=== PATIENT | female | born 1980 | race Caucasian/White ===

== ENCOUNTER 2017-09-16 17:28 | Inpatient (IN) | payer OTHER ==
[~2017-09-16] VITALS: Ht 152.4 cm; Wt 69.2 kg
[~2017-09-16 17:28] MED LIST: ACEBUTCAFT; ALBU90OI INH; AZIT250 PO; AZIT500 PO; BELPHEELB PO; BIRTH CONTROL; Bactrim Ds Tab1 EACH PO; CEFU500 PO; CEPH500; CEPH500 PO; CETYLOZ; CLIN150 PO; CLIN15SU PO; CLIN300 PO; CLINDAMYCIN; CODACE30; CODACE30 PO; CODGUAEL PO; COPPER2 MG PO; CRUTCH3 USE; CRUTCH4 USE; CYCL10 PO; DIAZ5; DIAZ5 PO; DOXY100 PO; DULO30 PO; DULO60 PO; ERGO50000 PO; ERYT.5TO OS; ERYT333ERA; ERYT333ERA PO; ERYT500 PO; ESCI10; FAMO20 PO; FAMO40 PO; FLUO20 PO; GUAI100SY PO; HYDACE10B PO; HYDACE5 PO; HYDACE7.5 PO; HYDMOR2 PO; IBUHYD PO; IBUP600 PO; IBUP800 PO; IRON150C PO; KETO10 PO; LEVAQUIN; LEVFLO500 PO; LEXAPRO; LIDO700A20 TOP; LITH300CA; LOVA20; MAGCIT300 PO; MAGGLU250 PO; METR500 PO; MILK THISTLE; MILK THISTLE PO; MULVITMINE; MULVITMINE PO; NAPR375 PO; NAPR500 PO; NAPR500ERA PO; NAPR550; NAPR550 PO; NAPROSYN PRN; NEOPOLHCSU LEFTEAR; NITR100CA PO; NUVARING; ONDA4 PO; OXYACE5T PO; OXYC10TA19 PO; PARO20; PARO30; POLY17UD PO; POTA8 PO; PROACE100 PO; PROM25; PROM25 PO; PROM25S PR; Pepcid20 MG PO; RISP.25; ROXICODONE5 MG PO; RXCODGUASY PO; RXHYDACE PO; RXHYDMOR2 PO; RXNAPNA550 PO; RXOXYACE PO; RXPROACE PO; SILVER; SULTRIDS PO; TETR250; TRAM50 PO; TRAZ50; Vitamin B Comple1 EA PO; [UNRECOGNIZED DRUG - OTHER]; [UNRECOGNIZED DRUG - OTHER]; [UNRECOGNIZED DRUG - REMARK]
[2017-09-16 20:09] LABS: Source, Urine Clean Catch
[2017-09-16 20:14] LABS: BASOPHILS ABSOLUTE AUTO 0.02 K/mm3 (0.00-0.23); BASOPHILS PERCENT AUTO 0 % (0-2); EOSINOPHILS ABSOLUTE AUTO 0.14 K/mm3 (0.00-0.68); EOSINOPHILS PERCENT AUTO 2 % (0-6); Hematocrit 31.9 % (33.0-51.0); Hemoglobin 10.3 g/dL (11.5-16.0); IMMATURE GRAN ABSOLUTE AUTO 0.11 K/mm3 (0.00-0.10); IMMATURE GRAN PERCENT AUTO 1 % (0-1); LYMPHOCYTES PERCENT AUTO 22 % (21-46); MONOCYTES ABSOLUTE AUTO 0.67 K/mm3 (0.16-1.47); MONOCYTES PERCENT AUTO 8 % (4-13); Mean Corpuscular HGB 27.2 pg (26.0-34.0); Mean Corpuscular HGB Conc 32.3 g/dL (31.5-36.5); Mean Corpuscular Volume 84 fL (80-100); Mean Platelet Volume 9.5 fL (9.1-12.4); NEUTROPHILS PERCENT AUTO 67 % (41-73); Platelet Count 246 K/mm3 (150-400); RDW Coefficient Variation 12.5 % (11.7-14.2); RDW Standard Deviation 37.5 fL (35.1-46.3); Red Blood Cell Count 3.79 M/mm3 (3.80-5.20); White Blood Cell Count 8.34 K/mm3 (4.00-11.30)
[2017-09-16 20:17] LABS: Appearance, Urine Clear (Clear); Bilirubin, Urine Neg (Neg); Blood, Urine 3+ (Neg); Color, Urine Yellow (P-Yellow); Glucose Qualitative, Urine Neg (Neg); Ketones, Urine Neg (Neg); Leukocyte Esterase, Urine 1+ (Neg); Nitrite, Urine Neg (Neg); Protein, Urine Neg (Neg); Urobilinogen, Urine NORM (Normal)
[2017-09-16 20:30] LABS: White Blood Cells, Urine 0-2 /hpf (0-5)
[2017-09-16 20:30] LABS: Alanine Aminotransfer (ALT/SGP 15 U/L (12-78); Albumin, Blood 2.3 g/dL (3.4-5.0); Albumin/Globulin Ratio 0.5 (0.8-1.8); Alk Phos 166 U/L (50-136); Anion Gap 8 mmol/L (6-16); Aspartate Aminotrans (AST/SGOT 18 U/L (12-37); Bilirubin, Total 0.1 mg/dL (0.1-1.0); Blood Urea Nitrogen 15 mg/dL (8-24); Bun/Creatinine Ratio 26.7 (12.0-20.0); CO2, Blood 27 mmol/L (21-32); Calcium, Blood 8.9 mg/dL (8.5-10.1); Chloride, Blood 104 mmol/L (98-108); Creatinine, Blood 0.56 mg/dL (0.40-1.00); Globulin, Blood 4.3 g/dL (2.2-4.0); Glomerular Filtration Rate >60 (60-); Glucose, Blood 83 mg/dL (70-99); Potassium, Blood 3.9 mmol/L (3.5-5.5); Sodium, Blood 139 mmol/L (136-145); Total Protein, Blood 6.6 g/dL (6.4-8.2)
[2017-09-16 20:32] LABS: Bacteria Few /hpf; Squamous Epithelial Cells Few /hpf (Few); Trichomonas Rare /hpf
[2017-09-16] MEDS ORDERED: PRENATAL VITAMIN (22:56)
[2017-09-17] MEDS ORDERED: IBUP600 PO (12:27)
[2017-09-18 07:07] LABS: HBSAG SCREEN Negative (Negative); HIV SCREEN 4TH GENERATION WRFX Non Reactive (Non Reactive)
[2017-09-18 08:18] LABS: U Amphetamine Screen DETECTED; U Barbituate Screen Not Detected; U Benzodiazapine Screen Not Detected; U Buprenorphine Screen Not Detected; U Cannabinoids Screen Not Detected; U Cocaine Screen Not Detected; U Methadone Screen Not Detected; U Methamphetamine Screen DETECTED; U Opiates Screen Not Detected; U Oxycodone Screen Not Detected; U Phencyclidine Screen Not Detected; U Propoxyphene Screen Not Detected
[2017-09-18] MEDS ORDERED: DIPH50 PO (09:46)
[2017-09-20 14:10] LABS: CHLAMYDIA BY NAA Negative (Negative); GONOCOCCUS BY NAA Negative (Negative); TRICH VAG BY NAA Positive (Negative)
[2017-09-27 10:09] LABS: HEPATITIS C QUANTITATION HCV Not Detected IU/mL (.)
== END 2017-09-18 12:55 | disposition home or self-care (01) | DRG 776 ==
LOC: ER 17:28 → SURS 17:29
PROVIDERS: Emergency Medicine; Obstetrics & Gynecology
PROC: 3E0234Z Introduction of Serum, Toxoid and Vaccine into Muscle, Percutaneous Approach (ICD-10-PCS; principal; 2017-09-17)
DX: O90.89 Other complications of the puerperium, not elsewhere classified (principal); O98.83 Other maternal infectious and parasitic diseases complicating the puerperium; A59.01 Trichomonal vulvovaginitis; O98.43 Viral hepatitis complicating the puerperium; B19.20 Unspecified viral hepatitis C without hepatic coma; R10.84 Generalized abdominal pain; O99.53 Diseases of the respiratory system complicating the puerperium; J45.909 Unspecified asthma, uncomplicated; O99.335 Smoking (tobacco) complicating the puerperium; Z23 Encounter for immunization; Z88.0 Allergy status to penicillin; Z88.8 Allergy status to other drugs, medicaments and biological substances
CPT/HCPCS: 36415; 76856; 80053; 81001; 85025; 86592; 86762; 86850; 86900; 86901; 87086; 87340; 87389; 87491; 87522; 87591; 87661; 90707; 99285; G0378; G0480; Q0163

== ENCOUNTER 2024-12-21 04:28 | Emergency (ER) | payer OTHER ==
[~2024-12-21] VITALS: Ht 152.4 cm; Wt 64.9 kg
[~2024-12-21 04:28] MED LIST changes: +DIPH50 PO; +PRENATAL VITAMIN
[2024-12-21 06:58] VITALS: BP 118/73
== END 2024-12-21 06:58 | disposition home or self-care (01) ==
LOC: ER 04:28
DX: M79.671 Pain in right foot (principal); Z88.0 Allergy status to penicillin; Z88.1 Allergy status to other antibiotic agents; Z79.899 Other long term (current) drug therapy; J45.909 Unspecified asthma, uncomplicated; F17.200 Nicotine dependence, unspecified, uncomplicated; X58.XXXA Exposure to other specified factors, initial encounter
CPT/HCPCS: 73630; 99283-25